=== PATIENT | male | born 1970 | race Caucasian/White ===

== ENCOUNTER 2025-01-02 06:28 | Day surgery (SDC) | payer OTHER, SELFPAY | END 2025-01-02 08:35 | disposition home or self-care (01) | LOC: GI 06:28 | PROVIDERS: ATTENDING PHYSICIAN Internal Medicine | DX: Z12.11 Encounter for screening for malignant neoplasm of colon (principal); K63.5 Polyp of colon; K57.30 Diverticulosis of large intestine without perforation or abscess without bleeding; N40.0 Benign prostatic hyperplasia without lower urinary tract symptoms | CPT/HCPCS: 45380; 88305 ==

== ENCOUNTER 2025-02-10 17:46 | Emergency (ER) | payer SELFPAY ==
[2025-02-10 17:54] VITALS: BP 137/92
[2025-02-10 18:26] LABS: Hematocrit 46.4 % (39.0-52.0); Hemoglobin 15.9 g/dL (13.0-18.0); Mean Corp Hgb Conc. 34.3 g/dL (33.0-37.0); Mean Corpuscular Volume 85.0 fL (80.0-94.0); Nucleated Red Blood Cells % 0 % (-); Platelet Count 266 10^3/uL (130-400); Red Cell Dist. Width 12.4 % (11.5-14.5)
[2025-02-10 18:39] LABS: ALT (SGPT) 24 U/L (0-50); AST (SGOT) 28 U/L (17-59); Albumin 5.0 g/dl (3.5-5.0); Alkaline Phosphatase 67 U/L (38-126); Blood Urea Nitrogen 7 mg/dl (9-20); Calcium 9.4 mg/dl (8.4-10.2); Carbon Dioxide 30 mmol/L (22-30); Chloride 99 mmol/L (98-107); Glucose 96 mg/dl (70-99); Potassium 3.7 mmol/L (3.5-5.1); Sodium 134 mmol/L (135-145); Total Protein 8.5 g/dl (6.3-8.2); eGFR > 60.00
[2025-02-10 21:58] VITALS: BMI 27.0
[2025-02-10 22:04] VITALS: BP 112/80
[2025-02-10 23:00] VITALS: BP 117/79
--- NOTE | 2025-02-10 23:04 | ED.GENMED ---
History of Present Illness
General
Chief Complaint: Exposure-Chemical
Source: patient
Exam Limitations: none
Time Seen by Provider: 02/10/25 21:58
Nursing documentation reviewed up to this point in time: agreed with
History of Present Illness
History of Present Illness:
Note:
CHIEF COMPLAINT(S)
Chemical exposure with eye irritation and throat discomfort.
HISTORY OF PRESENT ILLNESS
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 He was exposed to acroylol chloride while sampling a dough in the workplace, despite wearing a respirator. The patient reports being exposed for approximately 20
seconds, during which time he noticed a burning sensation in his eyes and slight throat irritation. He mentioned that he could still smell the chemical through the respirator. Upon returning home and brushing his teeth, he could taste the chemical
in his mouth, prompting him to contact the safety data sheet ([employer] number, which advised him to call poison control. Poison control recommended visiting the hospital for a medical evaluation. He reports no current visual issues. He has been informed
of the need to monitor for any symptoms that may develop and to elevate his head with an extra pillow while sleeping.
PHYSICAL EXAM
General: Alert, no acute distress.
Skin: Warm, dry.
Head: Normocephalic, atraumatic.
Neck: Supple, trachea midline.
Eye Ears, nose, mouth and throat: Oral mucosa moist, eyes showing no acute damage. Pupils equal round and reactive to light and accommodation. Conjunctive there is white
Cardiovascular: Normal peripheral perfusion, No edema.
Respiratory: Respirations are non-labored.
Gastrointestinal : Abdomen nondistended.
Back: Normal range of motion, Normal alignment.
Musculoskeletal: Normal range of motion, normal strength.
Neurological: Alert and oriented to person, place, time, and situation, No focal neurological deficit observed.
Psychiatric: Cooperative, appropriate mood & affect.
PLAN
1. Visual acuity test to assess any potential impact on vision.
2. Advise using a humidified air solution to ease throat discomfort.
3. Suggest sleeping with an extra pillow for better respiratory comfort.
4. Educate the patient on potential delayed reactions within 24 to 72 hours and the importance of seeking medical attention if symptoms develop.
5. Recommended filing a formal report with his workplace to document the incident for future reference and insurance purposes.
DIFFERENTIAL DIAGNOSIS
The Differential Diagnosis includes, in no particular order, and is not limited to:
1. Chemical conjunctivitis
2. Chemical pharyngitis
3. Allergic reaction
4. Corneal abrasion (unlikely due to lack of acute symptoms)
5. Respiratory irritation
6. Chemical induced dermatitis (not present in this case)
7. Chemical pneumonitis (unlikely given the lack of respiratory symptoms)
8. Toxic exposure reaction
9. Reactive airway disease
10. Anxiety-related symptoms due to exposure incident
Disposition:
SUMMARY OF ENCOUNTER
The patient, a 54-year-old male employee at a [employer], presented to the emergency department following potential exposure to acroyl chloride at work. Despite wearing a respirator, he experienced a brief exposure of 20 seconds or less. He
reported tasting an unknown substance through the mask and, upon consulting the Material Safety Data Sheet (MSDS), was advised to contact poison control. Poison control recommended a medical evaluation, suggesting labs and a chest x-ray. During
evaluation, the patient reported no current symptoms.
DISPOSITION
Discharge.
ASSESSMENT
Potential chemical exposure with no current symptoms witnessed in the ED. The patient is concerned about delayed reactions or potential eye damage.
PLAN
1. Conduct visual acuity test to detect any potential vision impact.
2. Recommend using a humidified air solution to relieve any potential throat discomfort.
3. Suggest sleeping with an extra pillow to improve respiratory comfort.
4. Educate the patient on the possibility of delayed reactions within 24 to 72 hours and instruct immediate medical attention if symptoms appear.
5. Advise filing a formal incident report with his workplace for future reference and insurance documentation.
INDEPENDENT REVIEW OF LABS AND INTERPRETATION OF TESTS
My independent review of labs indicates no acute laboratory abnormalities suggestive of immediate chemical effects.
PATIENT EDUCATION AND COUNSELING
The patient was informed about the importance of monitoring for any delayed reactions to the chemical exposure and advised to seek immediate care if symptoms such as visual disturbances, respiratory issues, or severe irritation develop. Education
was provided on using a humidified air solution and elevating the head during sleep for comfort post-exposure.
FOLLOW-UP INSTRUCTIONS
Instruction provided to contact poison control or seek immediate medical evaluation if new symptoms arise. Advised to follow up with primary care physician or an occupational health specialist if any symptoms manifest.
MEDICAL DECISION MAKING
Number and Complexity of Problems Addressed: Potential chemical exposure with concern for irritation and delayed reactions.
Data:
Category 1: Lab tests ordered and reviewed to ensure no acute chemical toxicity.
Category 2: No imaging directly mentioned, as the patient showed no acute symptoms requiring immediate imaging.
Category 3: Discussion of case management with patient and poison control instructions followed.
DIAGNOSIS
1. Toxic effect of substances chiefly non-medicinal as to source, unspecified (ICD-10 Code: T65.90XA)
2. Other specified contact dermatitis due to chemicals (ICD-10 Code: L24.89) (if eye or skin irritation presents subsequently).
Consideration of Admission/Observation: Escalation of care including admission/observation was considered given the complexity and risk of the patients presenting complaint, exam findings, and their underlying concerns regarding potential delayed
reactions. However, ultimately the patient is safe for outpatient management with close follow-up, as the work-up reassured no acute life/organ-threatening processes, symptoms were well controlled upon reevaluation, examination was reassuring,
vitals were stable, and the patient agreed to discharge with reliable follow-up.
Past History
Past History
ED Past Medical History: None
ED Past Surgical History: None
Social History
Personal:
Living: with family
Phy Exam
Physical Exam
Physical Exam:
.
Course
Orders/Labs/Results
Orders:
Orders
02/10/25 18:08
CXR2 [CR Chest - 2 Views ] Urgent
Comment:
Reason For Exam: inahled chemical
02/10/25 18:19
CBC/With Diff [Complete Blood Count/With Diff] Urgent
Comprehensive Metabolic Panel Urgent
Abnormal Lab Results
02/10/25
18:19
Sodium 134 L mmol/L
(135-145)
BUN 7 L mg/dl
(9-20)
Total Protein 8.5 H g/dl
(6.3-8.2)
02/10/25 18:19
02/10/25 18:19
Vital Signs
Initial and Last Documented VS:
Initial Vital Signs
Temp Pulse Resp BP Pulse Ox
98.3 F 74 16 137/92 96
02/10/25 17:54 02/10/25 17:54 02/10/25 17:54 02/10/25 17:54 02/10/25 17:54
Last Documented Vital Signs
Temp Pulse Resp BP Pulse Ox
98.3 F 71 16 117/79 99
02/10/25 17:54 02/10/25 23:19 02/10/25 23:19 02/10/25 23:00 02/10/25 23:19
*Radiology
Radiology exam reviewed: radiology read reviewed and all reviewed NAD by ED Provider
*Pulse Oximetry
SaO2: 98
Oxygen Mode of Delivery: Room air
Patient hypoxic: no
*Critical Care Note
Total Time (30-74mins, 75-104mins- exclusive of procedures): Not Applicable
ED Attending Note
-
Portions of this chart may have been created with voice recognition software.� Occasional wrong word or��sound alike� substitutions may have occurred due to the inherent limitations of voice recognition software.
Discharge Plan
Departure
Patient Disposition: Home (Routine Discharge)
Date of Disposition: 02/10/25
Time of Disposition: 23:06
Patient with high blood pressure during this ER visit?: No
Condition: Good
Discharge Problem:
Chemical exposure
Instructions: Shortness of breath in adults - ED (DC)
Prescriptions:
No Action
multivitamin with folic acid [Tab-A-Inocencia] 1 TABLET tablet
1 tab PO DAILY
elderberry fruit and flower 1 EACH capsule
1 ea PO DAILY
Vitamin B12:
1 tab PO DAILY
Vitamin C
1 tab PO DAILY
hydrocodone-acetaminophen 1 TABLET tablet
1 - 2 tab PO Q4HPRN PRN (Reason: moderate to severe pain) Qty: 20 0RF
Referrals:
Occupational Health- [Outside]
Activity Restrictions/Additional Instructions:
Thank You for choosing [facility].
It was a pleasure meeting you and taking part in your care. We hope for your continued healing and wellness.
Please read discharge instructions in their entirety. However, they are for general education and may not describe your exact diagnosis at discharge. Information on your ER visit and medical conditions were discussed with you along with appropriate
follow up information...
If indicated, please take your medications as instructed and indicated on discharge paperwork.
Please schedule a follow up appointment as directed. Call to schedule an appointment
Please return to the emergency department with ANY change in, persisting, or worsening of symptoms. If any of your symptoms do not improve, or persist, or become more severe within 6-12 hours, please return to the emergency department for further
care.
Please return to the emergency department if you develop a headache, neck pain/stiffness, fever greater than 100.4F, chest pain, shortness of breath, persistent nausea, vomiting, slurred speech, difficulty walking, numbness/tingling, weakness, signs
of infection or any other symptoms that are worrisome to you.
If you have any questions or concerns please do not hesitate to call the Hospital at .
Interventions
Interventions:
*Risk Screen - Suicide Last Done: 02/10/25 18:05
*General Assessment Last Done: 02/10/25 21:59
*Neglect/Abuse Screening Last Done: 02/10/25 18:05
*ED- Fall Risk Assessment Last Done: 02/10/25 21:59
*ED COVID-19 Vaccine History Last Done: 02/10/25 21:59
*ED Influenza Vaccine History Last Done: 02/10/25 21:59
*Nursing Disposition Last Done: 02/10/25 23:21
ED-EENT Assessment Last Done: 02/10/25 22:00
ED- Pulmonary Assessment Last Done: 02/10/25 22:00
ED-Skin Assessment Last Done: 02/10/25 22:02
Discharge Date and Time
Discharge Date/Time: 02/10/25 23:22
Print Language: FRENCH
== END 2025-02-10 23:22 | disposition home or self-care (01) ==
LOC: EMR 17:46
PROVIDERS: Student in an Organized Health Care Education/Training Program; EMERGENCY PHYSICIAN Student in an Organized Health Care Education/Training Program; FAMILY PHYSICIAN Family Medicine
DX: Z77.098 Contact with and (suspected) exposure to other hazardous, chiefly nonmedicinal, chemicals (principal)
CPT/HCPCS: 99284; 71046; 80053; 85025